=== PATIENT | female | born 1960 | race Caucasian/White ===

== ENCOUNTER 2019-11-02 11:21 | Emergency (ER) | payer MEDICARE, MEDICAID, SELFPAY ==
[2019-11-02 11:28] VITALS: BP 173/105; PULSE 96; RESP 16; TEMP 36.8; O2SAT 96; BMI 38.7
--- NOTE | 2019-11-02 11:30 | ED_ITS ---
Entered by Carmela Carlton, acting as scribe for Morgan Marie DO HPI - Altered Mental Status General: Chief Complaint: Altered Mental Status Stated Complaint: AMS Time Seen by Provider: 11/02/19 11:24 Source: patient Mode of arrival: ambulatory Limitations: no limitations History of Present Illness: HPI narrative: 59 yo Female presents to ED with complaint of altered mental status. Pt is tearful and states that she doesn't know what's going on. Pt states that she doesn't know when this started. Pt states that she was told that her daughter has gotten but she doesn't remember it. Pt's family states that the patient's episode started this morning at around 4am and the patient has been more anxious. Pt's family states that the patient had an accident in 1993 and has had memory issues since. Pt's family states that the patient has been very functional until now. Pt's family states that the patient has been off some of her regular medications like her blood pressure medicine. Pt's family states that they got her in the shower this morning and the patient couldn't remember why she was wet. Pt's family states that the patient had neck surgery in the past year and has had some falls since. Pt's family states that the patient has been under increased stress recently because her father is in poor health and it has been causing her to have a nxiety. complaint: altered mental status Onset (ago): hour(s) Consistency of symptoms: Waxing and Waning Associated symptoms: Reports no associated symptoms and other (confusion) Review of Systems General: Reports: 10 or more systems reviewed and unremarkable except in HPI and below Neuro: Reports: confusion Psych: Reports: anxiety PFSH ED PFSH: Medical History (Updated 11/02/19 @ 14:33 by Morgan Marie DO) Anxiety Asthma Depression GERD (gastroesophageal reflux disease) HTN (hypertension) Surgical History (Updated 11/02/19 @ 11:51 by Carmela Carlton) History of cholecystectomy History of hysterectomy History of tonsillectomy Social History Smoking and tobacco status: never smoked Physical Exam Const: COMMON NORMALS: no apparent distress, average body habitus, oriented x3, no limitations, healthy appearing, alert and well nourished HENMT: COMMON NORMALS: normocephalic, head/scalp atraumatic, hearing grossly normal bilaterally, external ears normal, EAC's normal, TM's normal bilaterally, external nose normal, nasal mucous membranes and turbinates normal, moist oral mucous membranes, oropharynx normal, dentition normal and gingiva normal HEAD & SCALP: normocephalic and atraumatic NOSE: external nose normal and nasal mucous membranes and turbinates normal EXTERNAL EAR: Yes external ears normal EXTERNAL AUDITORY CANAL: EAC's normal TYMPANIC MEMBRANE: TM's normal bilaterally Eye: COMMON NORMALS: PERRL, EOMs intact bilaterally, conjunctivae normal, no scleral icterus, no papilledema, normal visual tobin by confrontation and fundi normal bilaterally CONJUNCTIVA: Yes conjunctivae normal PUPIL: Yes PERRL DIRECT OPHTHALMOSCOPY: Yes no papilledema and Yes fundi normal bilaterally Neck/C-Spine: COMMON NORMALS: full ROM, no lymphadenopathy, supple, no meningeal signs, no JVD, thyroid normal and no carotid bruits THYROID: thyroid normal Chest: COMMONS NORMALS: inspection of chest normal and palpation of chest normal Resp: COMMON NORMALS: normal respiratory effort, no retractions, no use of accessory muscles, clear to auscultation bilaterally and percussion normal AUSCULTATION: clear to auscultation bilaterally PERCUSSION: percussion normal Cardio: COMMON NORMALS: no JVD, regular rate, regular rhythm, S1 normal heart sound, S2 normal heart sound, no gallops, no clicks, no murmurs, no rub and peripheral pulses 2+ throughout RATE: regular rate RHYTHM: regular rhythm HEART SOUNDS: S1 normal and S2 normal PERIPHERAL PULSES: pulses 2+ throughout GI: COMMON NORMALS: normal to inspection, nondistended, normoactive bowel sounds, soft to palpation, non-tender, no hepatosplenomegaly, no masses and no bruits PALPATION: Yes soft and Yes no hepatosplenomegaly : COMMON NORMALS: Yes no CVA tenderness and Yes external appearance normal BLADDER/KIDNEY EXAM: Yes no CVA tenderness Back/Pelvis: COMMON NORMALS: no CVA tenderness, thoracic and lumbar spine normal to inspection, no thoracic nor lumbar tenderness, thoraco-lumbar ROM normal and straight leg raise negative bilaterally Extremity: COMMON NORMALS: normal to inspection, full ROM, normal capillary refill, no joint enlargement, no clubbing, cyanosis or edema, no calf tenderness and no pedal edema Neuro: COMMON NORMALS: oriented x3 SENSORIUM/ORIENTATION: Yes alert MENINGEAL SIGNS: Yes no meningeal signs Psych: MOOD & AFFECT: Yes tearful THOUGHT PROCESS: confused THOUGHT CONTENT: Yes normal thought content Skin: COMMON NORMALS: no rashes or lesions noted, no wounds, skin turgor normal, no jaundice, no petechiae and no mottling GENERAL SKIN EXAM: no rashes or lesions noted and turgor normal Course Vital Signs: Vital signs: Vital Signs Temperature 98.3 F 11/02/19 11:28 Pulse Rate 67 11/02/19 14:02 Respiratory Rate 16 11/02/19 11:28 Blood Pressure 120/81 11/02/19 14:02 Pulse Oximetry 97 11/02/19 14:02 MDM - Altered Mental Status Lab Data: Labs: Lab Results 11/02/19 11/02/19 11/02/19 Range/Units 11:50 11:50 11:50 WBC 9.0 (4.0-10.0) 10^3/ uL RBC 4.70 (4.1-5.3) 10^6/u L Hgb 13.9 (11.5-15.3) g/dL Hct 40.8 (37.0-47.0) % MCV 86.8 (81-99) fL MCH 29.6 (28.0-34.0) pg MCHC 34.1 (30.0-36.0) g/dL RDW 12.1 (12.1-15.1) % Plt Count 272 (130-400) 10^3/c mm MPV 10.0 (7.4-10.4) fL Neut % (Auto) 86.0 % Lymph % (Auto) 9.2 % [place] % (Auto) 4.4 % Eos % (Auto) 0.0 % Baso % (Auto) 0.1 % Neut # (Auto) 7.7 (1.8-7.7) 10^3/u L Lymph # (Auto) 0.8 (0.8-4.8) 10^3/u L [place] # (Auto) 0.4 (0.2-0.9) 10^3/u L Eos # (Auto) 0.0 (0.0-0.8) 10^3/u L Baso # (Auto) 0.0 (0.0-0.1) 10^3/u L Nucleated RBC % (a uto) 0 % Nucleated RBCs # 0.0 /100WBC Sodium 137 (136-145) mmol/L Potassium 3.5 (3.5-5.1) mmol/L Chloride 100 (98-107) mmol/L Carbon Dioxide 21 L (22-29) mmol/L Anion Gap 19.5 H (5-19) BUN 16 (6-20) mg/dL Creatinine 0.8 (0.5-0.9) mg/dL GFR Calculation 73.9 L (90-130) mL/min Glucose 120 H (65-115) mg/dL Calculated Osmolal ity 282 L (285-295) mOsm/k g Lactate 1.0 (0.5-2.2) mmol/L Calcium 10.0 (8.5-10.5) mg/dL Total Bilirubin 0.6 (0.15-1.2) mg/dL AST 33 H (0-32) U/L ALT 24 (0-33) U/L Alkaline Phosphata se 72 (35-105) IU/L Total Protein 7.7 (6.6-8.7) g/dL Albumin 4.8 (3.5-5.2) g/dL Globulin 2.9 (1.3-4.6) g/dL TSH 0.91 (0.27-4.20) uIU/ mL Urine Color (Yellow) Urine Appearance (CLEAR) Urine pH (5-7) Ur Specific Gravit y (1.005-1.030) Urine Protein (Negative) Urine Glucose (UA) (Normal) Urine Ketones (Negative) Urine Blood (Negative) Urine Nitrate (Negative) Urine Bilirubin (NEGATIVE) Urine Urobilinogen (Negative) mg/dL Ur Leukocyte Irasema ase (Negative) Urine RBC (0-2) /hpf Urine WBC (0-5) /hpf Ur Squamous Epith Cells (0-5) Urine Bacteria (NONE) Urine Mucus Urine Opiates Scre en (Negative) ng/mL Ur Barbiturates Sc reen (Negative) ng/mL Ur Phencyclidine S crn (Negative) ng/mL Ur Amphetamines Sc reen (Negative) ng/mL U Benzodiazepines Scrn (Negative) ng/mL Urine Cocaine Scre en (Negative) ng/mL U Marijuana (THC) Screen (Negative) ng/mL 11/02/19 11/02/19 Range/Units 13:30 13:30 WBC (4.0-10.0) 10^3/ uL RBC (4.1-5.3) 10^6/u L Hgb (11.5-15.3) g/dL Hct (37.0-47.0) % MCV (81-99) fL MCH (28.0-34.0) pg MCHC (30.0-36.0) g/dL RDW (12.1-15.1) % Plt Count (130-400) 10^3/c mm MPV (7.4-10.4) fL Neut % (Auto) % Lymph % (Auto) % [place] % (Auto) % Eos % (Auto) % Baso % (Auto) % Neut # (Auto) (1.8-7.7) 10^3/u L Lymph # (Auto) (0.8-4.8) 10^3/u L [place] # (Auto) (0.2-0.9) 10^3/u L Eos # (Auto) (0.0-0.8) 10^3/u L Baso # (Auto) (0.0-0.1) 10^3/u L Nucleated RBC % (a uto) % Nucleated RBCs # /100WBC Sodium (136-145) mmol/L Potassium (3.5-5.1) mmol/L Chloride (98-107) mmol/L Carbon Dioxide (22-29) mmol/L Anion Gap (5-19) BUN (6-20) mg/dL Creatinine (0.5-0.9) mg/dL GFR Calculation (90-130) mL/min Glucose (65-115) mg/dL Calculated Osmolal ity (285-295) mOsm/k g Lactate (0.5-2.2) mmol/L Calcium (8.5-10.5) mg/dL Total Bilirubin (0.15-1.2) mg/dL AST (0-32) U/L ALT (0-33) U/L Alkaline Phosphata se (35-105) IU/L Total Protein (6.6-8.7) g/dL Albumin (3.5-5.2) g/dL Globulin (1.3-4.6) g/dL TSH (0.27-4.20) uIU/ mL Urine Color Yellow (Yellow) Urine Appearance Clear (CLEAR) Urine pH 5 (5-7) Ur Specific Gravit y 1.020 (1.005-1.030) Urine Protein Neg (Negative) Urine Glucose (UA) Norm (Normal) Urine Ketones Negative (Negative) Urine Blood 2+ H (Negative) Urine Nitrate Negative (Negative) Urine Bilirubin Neg (NEGATIVE) Urine Urobilinogen Norm (Negative) mg/dL Ur Leukocyte Irasema ase Negative (Negative) Urine RBC None (0-2) /hpf Urine WBC None (0-5) /hpf Ur Squamous Epith Cells 0-4 H (0-5) Urine Bacteria 1+ H (NONE) Urine Mucus 1+ Urine Opiates Scre en Negative (Negative) ng/mL Ur Barbiturates Sc reen Negative (Negative) ng/mL Ur Phencyclidine S crn Negative (Negative) ng/mL Ur Amphetamines Sc reen Negative (Negative) ng/mL U Benzodiazepines Scrn Positive H (Negative) ng/mL Urine Cocaine Scre en Negative (Negative) ng/mL U Marijuana (THC) Screen Negative (Negative) ng/mL Imaging Data^: CXR: Radiologist's impression: [place] [address] XRay Report Signed Patient: Kesha Navarrete #: [id number] : 2Acct#:[id number] Age/Sex: 59 / FADM Date: 11/02/19 [facility] Attending Dr: Ordering Provider/Ordering MD: Morgan Marie DO Date of Service: 11/02/19 Procedure(s): XR chest 1V portable [id number] Accession Number(s): [id number] Report Number: [id number] PROCEDURE INFORMATION: Exam: XR Chest, 1 View Exam date and time: 11/02/2019 11:44 AM Age: 59 years old Clinical indication: Shortness of breath; Additional info: AMS TECHNIQUE: Imaging protocol: XR of the chest Views: 1 view. COMPARISON: CR Chest 1 [place] [id number] 08/15/2016 11:50 AM FINDINGS: Lungs: No consolidation. Pleural space: No pleural effusion. No pneumothorax. Heart/Mediastinum: No cardiomegaly. Bones/joints: Postoperative change involving the lower cervical spine is noted. XR/XR chest 1V portable [id number] IMPRESSION: No acute findings. Dictated By:Ed Nagy MD Signed By:Ed Nagy MDSigned Date/Time:11/02/19 1229 DD/ 1227 CT Head: Radiologist's impression: [address] [address] [address] Scan Report Signed Patient: Kesha Navarrete AUnsilvana #: [id number] : 2Acct#:[id number] Age/Sex: 59 / FADM Date: 11/02/19 Loc: ERRoom/Bed: Attending Dr: Ordering Provider/Ordering MD: Morgan Marie DO Date of Service: 11/02/19 Procedure(s): CT head wo con* [id number] Accession Number(s): [id number] Report Number: [id number] PROCEDURE INFORMATION: Exam: CT Head Without Contrast Exam date and time: 11/02/2019 11:44 AM Age: 59 years old Clinical indication: Altered mental status/memory loss; Confusion or disorientation; Additional info: AMS TECHNIQUE: Imaging protocol: Computed tomography of the head without contrast. Total DLP: 770.9 mGy-cm Radiation optimization: All CT scans at this facility use at least one of these dose optimization techniques: automated exposure control; mA and/or kV adjustment per patient size (includes targeted exams where dose is matched to clinical indication); or iterative reconstruction. COMPARISON: No relevant prior studies available. FINDINGS: Brain: No hemorrhage. There is no CT evidence of an acute transcortical infaction. No mass effect. Ventricles: No ventriculomegaly. Bones/joints: No acute fracture. Sinuses: Visualized sinuses are unremarkable. No fluid levels. Mastoid air cells: Visualized mastoid air cells are well aerated. Soft tissues: Unremarkable. Vasculature: Atherosclerotic calcifications are noted. CT/CT head wo con* [id number] IMPRESSION: 1. No CT evidence of an acute intracranial process. Radiation Dose CTDIVOL = (mGy): DLP = 770.9 (mGy-cm) Dictated By:Ed Nayg MD Signed By:Ed Nagy MDSigned Date/Time:11/02/19 1230 DD/ 1229 Discharge Plan Discharge Patient Disposition: Home, Self-Care Clinical Impression: Anxiety Depression Qualifiers: Depression Type: major depressive disorder Major depression recurrence: recurrent Active/Remission status: currently active Major depression episode severity: severe Psychotic features: with psychotic features Qualified Code(s): F33.3 - Major depressive disorder, recurrent, severe with psychotic symptoms Altered mental status Qualifiers: Altered mental status type: disorientation Qualified Code(s): R41.0 - Disorientation, unspecified Condition: Stable Prescriptions: No Action cyclobenzaprine 10 mg tablet 10 mg PO TID PRN (Reason: Spasms) RF: 0 venlafaxine 75 mg tablet 75 mg PO BID RF: 0 albuterol sulfate 2.5 mg /3 mL (0.083 %) solution for nebulization 2.5 mg inhalation Q4H PRN (Reason: Shortness Of Breath) RF: 0 lisinopril 20 mg tablet 20 mg PO DAILY RF: 0 tramadol 50 mg tablet 50 mg PO Q4H PRN (Reason: Pain) RF: 0 alprazolam 0.25 mg tablet 0.25 mg PO TID PRN (Reason: Anxiety) RF: 0 trazodone 100 mg tablet 100 mg PO BEDTIME RF: 0 pramipexole 0.125 mg tablet 0.125 mg PO BEDTIME PRN (Reason: Restless Leg(S)) RF: 0 gabapentin 300 mg capsule 300 mg PO TID RF: 0 ProAir HFA 90 mcg/actuation HFA aerosol inhaler 2 puff INHALATION Q4H PRN (Reason: Shortness Of Breath) RF: 0 fluoxetine 20 mg capsule 20 mg PO DAILY RF: 0 Excedrin Migraine 250-250-65 mg Tablet 1 - 2 tab PO PRN RF: 0 Discharge Orders: Discharge Order (Routine); Ordered 11/02/19 Ordered By: Morgan Marie Referrals: Anny Holt NP [Family Provider] - Coding Level of Care Code ED Consulting Practice Director for Chg Fwd Exam Comprehensive The documentation recorded by the Brandt sparks Carmen, accurately reflects the service I personally performed and the decisions made by Frank neely Donald P, Nov 02, 2019 11:21
--- NOTE | 2019-11-02 11:42 | XRR_ITS ---
PROCEDURE INFORMATION: Exam: XR Chest, 1 View Exam date and time: 11/02/2019 11:44 AM Age: 59 years old Clinical indication: Shortness of breath; Additional info: AMS TECHNIQUE: Imaging protocol: XR of the chest Views: 1 view. COMPARISON: CR Chest 1 [place] [id number] 08/15/2016 11:50 AM FINDINGS: Lungs: No consolidation. Pleural space: No pleural effusion. No pneumothorax. Heart/Mediastinum: No cardiomegaly. Bones/joints: Postoperative change involving the lower cervical spine is noted. XR/XR chest 1V portable [id number] IMPRESSION: No acute findings.
--- NOTE | 2019-11-02 11:42 | CTR_ITS ---
PROCEDURE INFORMATION: Exam: CT Head Without Contrast Exam date and time: 11/02/2019 11:44 AM Age: 59 years old Clinical indication: Altered mental status/memory loss; Confusion or disorientation; Additional info: AMS TECHNIQUE: Imaging protocol: Computed tomography of the head without contrast. Total DLP: 770.9 mGy-cm Radiation optimization: All CT scans at this facility use at least one of these dose optimization techniques: automated exposure control; mA and/or kV adjustment per patient size (includes targeted exams where dose is matched to clinical indication); or iterative reconstruction. COMPARISON: No relevant prior studies available. FINDINGS: Brain: No hemorrhage. There is no CT evidence of an acute transcortical infaction. No mass effect. Ventricles: No ventriculomegaly. Bones/joints: No acute fracture. Sinuses: Visualized sinuses are unremarkable. No fluid levels. Mastoid air cells: Visualized mastoid air cells are well aerated. Soft tissues: Unremarkable. Vasculature: Atherosclerotic calcifications are noted. CT/CT head wo con* [id number] IMPRESSION: 1. No CT evidence of an acute intracranial process. Radiation Dose CTDIVOL = (mGy): DLP = 770.9 (mGy-cm)
[2019-11-02 11:48] VITALS: O2SAT 93
[2019-11-02] MEDS: LORazepam 2 mg/mL INJ 1 mL 1 MG IVP (11:50)
--- NOTE | 2019-11-02 11:55 | PC.NURSE ---
portable xray at bedside
[2019-11-02 11:59] LABS: Basophils % 0.1 %; Hematocrit 40.8 % (37.0-47.0); Hemoglobin 13.9 g/dL (11.5-15.3); Lymphocytes # 0.8 10^3/uL (0.8-4.8); Lymphocytes % 9.2 %; Mean Corpuscular HGB Conc 34.1 g/dL (30.0-36.0); Mean Corpuscular Hemoglobin 29.6 pg (28.0-34.0); Mean Corpuscular Volume 86.8 fL (81-99); Monocytes # 0.4 10^3/uL (0.2-0.9); Monocytes % 4.4 %; Neutrophils # 7.7 10^3/uL (1.8-7.7); Nucleated Red Blood Cells % 0 %; Platelet Count 272 10^3/cmm (130-400); Red Cell Distribution Width 12.1 % (12.1-15.1)
--- NOTE | 2019-11-02 11:59 | PC.NURSE ---
pt to CT by alejandra
[2019-11-02] MEDS: sodium chloride 0.9% 1,000 ML 999 ML IV (12:13)
[2019-11-02 12:14] VITALS: BP 124/81; PULSE 89; O2SAT 96
[2019-11-02 12:28] LABS: Alanine Aminotransferase 24 U/L (0-33); Albumin Level 4.8 g/dL (3.5-5.2); Alkaline Phosphatase 72 IU/L (35-105); Anion Gap 19.5 (5-19); Aspartate Amino Transferase 33 U/L (0-32); Blood Urea Nitrogen 16 mg/dL (6-20); Carbon Dioxide 21 mmol/L (22-29); Chloride 100 mmol/L (98-107); Globulin 2.9 g/dL (1.3-4.6); Glomerular Filtration Rate 73.9 mL/min (90-130); Glucose 120 mg/dL (65-115); Osmolality Calculated 282 mOsm/kg (285-295); Potassium 3.5 mmol/L (3.5-5.1); Sodium 137 mmol/L (136-145); Thyroid Stimulating Hormone 0.91 uIU/mL (0.27-4.20); Total Bilirubin 0.6 mg/dL (0.15-1.2); Total Protein 7.7 g/dL (6.6-8.7)
--- NOTE | 2019-11-02 12:42 | PC.NURSE ---
pt is resting comfortably at this time. Pt is no longer tearful.
--- NOTE | 2019-11-02 12:59 | PC.PHAR ---
PT UNABLE TO VERIFY MEDS BUT THESE ARE THE MEDICATIONS THAT THE FAMILY BROUGHT IN
[2019-11-02 13:32] VITALS: BP 121/67; PULSE 87; O2SAT 99
[2019-11-02 14:02] VITALS: BP 120/81; PULSE 67; O2SAT 97
[2019-11-02 14:10] LABS: Add Urine Microscopic? YES; Bilirubin Urine Neg (NEGATIVE); Blood Urine 2+ (Negative); Glucose Urine UA Norm (Normal); Ketones Urine Negative (Negative); Leukocyte Esterase Urine Negative (Negative); Nitrate Urine Negative (Negative); Protein Urine Neg (Negative); Urine Appearance Clear (CLEAR); Urine Color Yellow (Yellow); Urobilinogen Urine Norm (Negative); pH Urine 5 (5-7)
[2019-11-02 14:11] LABS: Amphetamines Screen Urine Negative (Negative); Barbiturates Screen Urine Negative (Negative); Benzodiazepines Screen Urine Positive (Negative); Cocaine Screen Urine Negative (Negative); Opiate Screen Urine Negative (Negative); PCP Screen Urine Negative (Negative); THC Screen Urine Negative (Negative)
[2019-11-02 14:25] LABS: Bacteria Urine 1+; Mucus Urine 1+; Squamous Epithelial Cell Urine 0-4 (0-5)
[2019-11-02 14:26] LABS: Add Urine Culture? No
[2019-11-02 14:50] VITALS: BP 104/55; PULSE 73; O2SAT 96
== END 2019-11-02 14:50 | disposition home or self-care (01) ==
PROVIDERS: Emergency Provider Family Medicine; Family Provider Nurse Practitioner
DX: F41.9 Anxiety disorder, unspecified (principal); F33.3 Major depressive disorder, recurrent, severe with psychotic symptoms; R41.0 Disorientation, unspecified; J45.909 Unspecified asthma, uncomplicated; K21.9 Gastro-esophageal reflux disease without esophagitis; I10 Essential (primary) hypertension; Z91.14 Patient's other noncompliance with medication regimen
CPT/HCPCS: 12345; 36415; 70450; 71045; 80053; 80306; 81001; 83605; 84443; 85025; 87040; 96360; 96361; 96374; 96375; 99283; 99284; J2060; J7030

== ENCOUNTER 2020-06-03 06:00 | Outpatient (RCR) | payer MEDICARE, MEDICAID, SELFPAY | END 2020-06-20 23:59 | disposition home or self-care (01) | LOC: MPT 06:00 | PROVIDERS: PCP Nurse Practitioner; Referring Provider Nurse Practitioner; Visit Provider Nurse Practitioner | DX: M54.5 Low back pain (principal); M54.2 Cervicalgia | CPT/HCPCS: 97110; 97140; 97162; G0283 ==

== ENCOUNTER 2020-06-21 06:00 | Outpatient (RCR) | payer MEDICARE, MEDICAID, SELFPAY | END 2020-07-20 23:59 | disposition home or self-care (01) | LOC: MPT 06:00 | PROVIDERS: PCP Nurse Practitioner; Referring Provider Nurse Practitioner; Visit Provider Nurse Practitioner | DX: M54.5 Low back pain (principal); M54.2 Cervicalgia; M25.521 Pain in right elbow; R26.81 Unsteadiness on feet | CPT/HCPCS: 97110; 97140; G0283 ==

== ENCOUNTER 2020-07-30 10:16 | Outpatient (CLI) | payer MEDICARE, MEDICAID, SELFPAY ==
--- NOTE | 2020-07-30 10:21 | US_ITS ---
WS: [id number] TRANSABDOMINAL PELVIC AND TRANSVAGINAL PELVIC ULTRASOUND HISTORY: GENERALIZED ABDOMINAL PAIN COMPARISON: None available. Status post hysterectomy. No midline mass. No solid mass in the pelvis or free fluid. Right ovary: Status post oophorectomy. No RIGHT adnexal mass. Left ovary: 1.9 cm x 2.7 cm x 1.9 cm. Small caliber LEFT ovary is poorly visualized. US/US pelvic with transvaginal IMPRESSION: 1. Poorly visualized LEFT ovary. 2. Status post hysterectomy and RIGHT oophorectomy.
--- NOTE | 2020-07-30 10:21 | US_ITS ---
WS: [id number] Complete ABDOMINAL ULTRASOUND HISTORY: GENERALIZED ABD PAIN COMPARISON: None available. Liver: 19.2 cm in length. Moderately enlarged liver. No mass or bile duct dilatation. The entire live r is poorly visualized due to attenuation. Gallbladder: Prior cholecystectomy. Pancreas: Poorly visualized. CBD: 0.6 cm. Right kidney: 9.1 cm x 5.6 cm x 5.5 cm. No mass, cortical thickening or hydronephrosis. Left kidney: 10.1 cm x 5.8 cm x 5.9 cm. No mass, cortical thickening or hydronephrosis. Spleen: Normal size and echogenicity. Abdominal aorta and IVC are within normal limits. No ascites. US/US abdomen complete* [id number] IMPRESSION: 1. Moderate hepatomegaly with hepatic steatosis. 2. Prior cholecystectomy. 3. Negative kidneys.
== END 2020-07-30 10:17 | disposition home or self-care (01) ==
LOC: RAD 10:19
PROVIDERS: PCP Nurse Practitioner; Visit Provider Nurse Practitioner
DX: R10.84 Generalized abdominal pain (principal); Z90.710 Acquired absence of both cervix and uterus; Z90.721 Acquired absence of ovaries, unilateral; Z90.49 Acquired absence of other specified parts of digestive tract; R16.0 Hepatomegaly, not elsewhere classified; K76.0 Fatty (change of) liver, not elsewhere classified
CPT/HCPCS: 76700; 76830; 76856

== ENCOUNTER 2020-09-15 11:30 | Outpatient (CLI) | payer MEDICARE, MEDICAID, SELFPAY ==
--- NOTE | 2020-09-15 11:31 | MM_ITS ---
WS: [id number] BILATERAL DIGITAL SCREENING MAMMOGRAPHY WITH CAD CLINICAL INFORMATION: SCREENING HISTORY: Screening mammogram. No current complaints. COMPARISON: TECHNIQUE: Bilateral CC and MLO views. FINDINGS: Scattered fibroglandular densities bilaterally. No suspicious focal mass, asymmetry, calcifications, or architectural distortion. No evidence of malignancy. MM/[place] [id number] IMPRESSION: BI-RADS: 1-Negative FOLLOW UP: 1 Year Follow-up Recommend return to annual screening mammography.
== END 2020-09-15 11:31 | disposition home or self-care (01) ==
PROVIDERS: PCP Nurse Practitioner; Visit Provider Nurse Practitioner
DX: Z12.31 Encounter for screening mammogram for malignant neoplasm of breast (principal)
CPT/HCPCS: 77067

== ENCOUNTER 2021-05-03 15:02 | Outpatient (CLI) | payer MEDICARE, MEDICAID, SELFPAY ==
--- NOTE | 2021-05-03 15:13 | XR_ITS ---
WS: [id number] RIGHT FOOT: 3 VIEW(S) TECHNIQUE: AP, oblique and lateral. HISTORY: PAIN IN R FOOT COMPARISON: None available. No acute fracture or dislocation. Mild hallux valgus deformity. No erosion or fracture. Normal tarsal/metatarsal alignment. No soft tissue abnormality or bone destruction. XR/XR foot RT min 3V* [id number] IMPRESSION: Mild hallux valgus deformity. No fracture.
--- NOTE | 2021-05-03 15:13 | XR_ITS ---
WS: [id number] RIGHT ELBOW: 3 VIEW(S) TECHNIQUE: AP, oblique and lateral. HISTORY: PAIN IN R ELBOW COMPARISON: None available. No acute fractures or dislocation. No joint effusion. 3 mm calcific density adjacent to the medial epicondyle. XR/XR elbow RT min 3V* [id number] IMPRESSION: 1. No fracture. 2. Calcification adjacent to the medial epicondyle may be from a prior epicond ylitis which is healed.
== END 2021-05-03 15:03 | disposition home or self-care (01) ==
LOC: RAD 15:11
PROVIDERS: PCP Nurse Practitioner; Visit Provider Nurse Practitioner
DX: M79.671 Pain in right foot (principal); M25.521 Pain in right elbow; M20.11 Hallux valgus (acquired), right foot
CPT/HCPCS: 73080; 73630